=== PATIENT | female | born 1980 | race Caucasian/White ===

== ENCOUNTER → 2024-09-25 | Outpatient (CLI) | payer BC ==
--- NOTE | 2024-09-25 13:48 | HMCIMG ---
US ARTERIAL BILAT LOW EXT DUPL HISTORY: PVD, UNSP TECHNIQUE: Real-time arterial doppler ultrasound of the lower extremity was performed. FINDINGS: RIGHT: Normal triphasic and biphasic waveforms seen in the evaluated arteries. Peak systolic velocities: LITERACY TUTOR triphasic 117 cm/s. Proximal SFA triphasic 94 cm/s. Mid SFA triphasic 101cm/s Distal SFA triphasic 74 cm/s. Proximal popliteal triphasic 46 cm/s. Distal popliteal triphasic 51 cm/s. VOCATIONAL REHABILITATION TECHNICIAN triphasic 57 cm/s. EMMA triphasic 64 cm/s. DPA triphasic 54 cm/s. LEFT: Normal triphasic and biphasic waveforms seen in the evaluated arteries. Peak systolic velocities: LITERACY TUTOR triphasic 108 cm/s. Proximal SFA triphasic 98 cm/s. Mid SFA triphasic 99cm/s Distal SFA triphasic 59 cm/s. Proximal popliteal triphasic 48 cm/s. Distal popliteal triphasic 66 cm/s. VOCATIONAL REHABILITATION TECHNICIAN biphasic 50 cm/s. EMMA biphasic 69 cm/s. DPA biphasic 58 cm/s. There is mild atherosclerotic changes seen of both lower extremity vasculature. There is Abraham's cyst seen in the right popliteal fossa measuring 1.9 x 0.7 x 2.0 cm. There is a second cutter's cyst measuring 2.2 x 1.2 x 2.4 cm. IMPRESSION: No evidence of flow-limiting stenosis by velocity criteria. Abraham's cysts seen in the right popliteal fossa.
== END | disposition home or self-care (01) ==
LOC: RAH 12:53
PROVIDERS: ATTEND Family Medicine
DX: M71.21 Synovial cyst of popliteal space [Baker], right knee (principal); I73.9 Peripheral vascular disease, unspecified
CPT/HCPCS: 93925